=== PATIENT | male | born 1960 | race Caucasian/White ===

== ENCOUNTER → 2018-09-03 | Outpatient (CLI) | payer BC ==
[~2018-09-03] MED LIST: ASPI-757 PO; ATOR40TA24 PO
== END ==
LOC: AMB 02:09
PROVIDERS: ATTEND Nurse Practitioner
DX: I21.4 Non-ST elevation (NSTEMI) myocardial infarction (principal)
CPT/HCPCS: A0425; A0426

== ENCOUNTER 2018-09-05 22:12 | Emergency (ER) | payer BC ==
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
[2018-09-05] MEDS ORDERED: ATOR40TA24 PO (22:28)
[2018-09-05] MEDS ORDERED: ASPI-757 PO (22:28)
[2018-09-05] MEDS ORDERED: ASPIRIN 81 MG CHEW PO ONE (22:30)
--- NOTE | 2018-09-05 22:31 | EKG ---
FACILITY: [facility] [place] PATIENT NAME: EV GONZALEZ : [id number] MR: [id number] V: [id number] EXAM DATE: ORDERING PHYSICIAN: AMBER WU TECHNOLOGIST: JOSE MIGUEL Test Reason : CHEST PAIN Blood Pressure : / mmHG Vent. Rate : 083 BPM Atrial Rate : 083 BPM P-R Int : 144 ms QRS Dur : 084 ms QT Int : 396 ms P-R-T Axes : 053 020 063 degrees QTc Int : 465 ms Normal sinus rhythm Nonspecific ST changes in inferior leads Anterior infarct (cited on or before 04-APR-2013) Abnormal ECG When compared with ECG of 04-APR-2013 14:17, Vent. rate has increased BY 27 BPM Questionable change in initial forces of Anterior leads ST elevation has replaced ST depression in Inferior leads Confirmed by VICTORIA SHEFFIELD ([id number]) on 09/06/2018 6:19:49 AM Referred By: Confirmed By:VICTORIA SHEFFIELD
[2018-09-05 22:48] LABS: PLATELET COUNT, AUTOMATED 238 K/uL (150-450)
[2018-09-05 22:56] LABS: INR 1.02
--- NOTE | 2018-09-05 23:30 | RADIOLOGY IMAGING REPORT ---
FACILITY: [facility] PATIENT NAME: Fady Leslie : 1960 MR: [id number] V: [id number] EXAM DATE: ORDERING PHYSICIAN: AMBER WU TECHNOLOGIST: Location: [facility] [place] Patient: Fady Leslie : 1960 Visit/Account:[id number] Date of Sevice: 09/05/2018 2 VIEWS CHEST INDICATION: Chest Pain COMPARISON: None available FINDINGS: Heart size within normal limits. There is no focal infiltrate or lobar consolidation. There is no pneumothorax or pleural effusion. IMPRESSION: 1. No acute cardiopulmonary process. Report Dictated By: Anthony Feliciano MD at 09/05/2018 11:25 PM Report E-Signed By: Anthony Feliciano MD at 09/05/2018 11:25 PM WSN:[id number]
--- NOTE | 2018-09-05 23:31 | RADIOLOGY IMAGING REPORT ---
FACILITY: [facility] [place] PATIENT NAME: Fady Leslie : 1960 MR: [id number] V: [id number] EXAM DATE: ORDERING PHYSICIAN: AMBER WU TECHNOLOGIST: Location: [facility] Patient: Fady Leslie : 1960 Visit/Account:[id number] Date of Sevice: 09/05/2018 3 views left hand Indication: hand pain, injury, ulnar side Comparison: None Available. Findings: No evidence of fracture, dislocation, or acute osseous abnormality of the left hand. Nonspecific soft tissue swelling along the ulnar aspect of the hand. No evidence of radiopaque foreign body. No significant degenerative or erosive changes identified. IMPRESSION: 1.No acute osseous abnormality of the left hand 2. Nonspecific soft tissue swelling along the ulnar aspect of the hand. Report Dictated By: Anthony Feliciano MD at 09/05/2018 11:26 PM Report E-Signed By: Anthony Feliciano MD at 09/05/2018 11:27 PM WSN:[id number]
[2018-09-06] MEDS ORDERED: CALCIUM CARBONATE 500 MG CHEW PO ONE (01:15)
[2018-09-06] MEDS ORDERED: HEPARIN (PORC) 5000 UN/ML VIAL IVP ONE (01:35)
[2018-09-06] MEDS ORDERED: [UNRECOGNIZED DRUG - OTHER] IV ONE (01:35)
[2018-09-06] MEDS ORDERED: HEPARIN SOD/D5W 25000/250 ML 250 ML IV ONE (01:38)
--- NOTE | 2018-09-06 01:52 | EKG ---
FACILITY: [facility] - [place] PATIENT NAME: EV GONZALEZ : [id number] MR: [id number] V: [id number] EXAM DATE: ORDERING PHYSICIAN: AMBER WU TECHNOLOGIST: JOSE MIGUEL Test Reason : CHEST PAIN Blood Pressure : / mmHG Vent. Rate : 066 BPM Atrial Rate : 066 BPM P-R Int : 142 ms QRS Dur : 090 ms QT Int : 396 ms P-R-T Axes : 041 008 051 degrees QTc Int : 415 ms Normal sinus rhythm with sinus arrhythmia Anteroseptal infarct (cited on or before 04-APR-2013) Abnormal ECG When compared with ECG of 05-SEP-2018 22:13, QT has shortened Confirmed by VICTORIA SHEFFIELD ([id number]) on 09/06/2018 6:13:04 AM Referred By: Confirmed By:VICTORIA SHEFFIELD
[2018-09-06 02:15] VITALS: BP 131/92
[2018-09-06] MEDS ORDERED: PANTOPRAZOLE SOD 40 MG IV VIAL IVP ONE (02:15)
== END 2018-09-06 02:38 | disposition short-term general hospital (02) ==
LOC: ER 22:22
DX: I21.4 Non-ST elevation (NSTEMI) myocardial infarction (principal)
CPT/HCPCS: 71046; 73130; 83880; 84484; 85025; 85379; 85610; 85730; 93005; 96365; 96375; 99285; C9113; J1644; 82040; 82247; 82310; 82374; 82435; 82565; 82947; 84075; 84132; 84155; 84295; 84450; 84460; 84520